=== PATIENT | male | born 1955 | race Caucasian/White ===

== ENCOUNTER → 2023-07-26 06:22 | Day surgery (SDC) | payer MEDICARE, OTHER, SELFPAY | LOC: GI 06:22 | PROVIDERS: ATTENDING PHYSICIAN Internal Medicine | DX: Z12.11 Encounter for screening for malignant neoplasm of colon (principal); K63.5 Polyp of colon; K57.30 Diverticulosis of large intestine without perforation or abscess without bleeding; K64.8 Other hemorrhoids; N40.0 Benign prostatic hyperplasia without lower urinary tract symptoms | CPT/HCPCS: 45380; 88305 ==

== ENCOUNTER → 2023-10-25 09:10 | Outpatient (REF) | payer MEDICARE, OTHER, SELFPAY ==
[2023-10-25 14:07] LABS: ALT (SGPT) 28 U/L (0-50); AST (SGOT) 30 U/L (17-59); Albumin 4.6 g/dl (3.5-5.0); Alkaline Phosphatase 60 U/L (38-126); Blood Urea Nitrogen 16 mg/dl (9-20); Calcium 9.7 mg/dl (8.4-10.2); Carbon Dioxide 30 mmol/L (22-30); Chloride 103 mmol/L (98-107); Glucose 95 mg/dl (70-99); HDL Cholesterol 58 mg/dl; LDL Cholesterol, Calculated 106 mg/dl; Potassium 4.4 mmol/L (3.5-5.1); Sodium 142 mmol/L (135-145); Total Bilirubin 0.9 mg/dl (0.2-1.3); Total Cholesterol 177 mg/dl (50-199); Triglyceride 67 mg/dl (10-149); Very Low Density Lipoprotein 13 mg/dl (0-30); eGFR > 60.00
[2023-10-25 14:33] LABS: PSA, Total - Diagnostic 0.62 ng/ml (0.0-4.0)
== END ==
LOC: HWLAB 09:10
PROVIDERS: ATTENDING PHYSICIAN Urology; FAMILY PHYSICIAN Nurse Practitioner
DX: N40.3 Nodular prostate with lower urinary tract symptoms (principal); E78.2 Mixed hyperlipidemia
CPT/HCPCS: 36415; 80053; 80061; 84153

== ENCOUNTER → 2024-11-06 10:26 | Outpatient (REF) | payer MEDICARE, OTHER, SELFPAY ==
[2024-11-06 12:42] LABS: PSA, Total - Diagnostic 0.61 ng/ml (0.0-4.0)
== END ==
LOC: HWLAB 10:26
PROVIDERS: ATTENDING PHYSICIAN Urology
DX: N40.3 Nodular prostate with lower urinary tract symptoms (principal); R35.1 Nocturia
CPT/HCPCS: 36415; 84153